=== PATIENT | female | born 1950 | race Caucasian/White ===

== ENCOUNTER 2018-04-15 15:09 | Outpatient (CLI) | payer OTHER ==
--- NOTE | 2018-04-15 16:40 | Ultrasound Report ---
Reason: THYROID NODULE Procedure Date: 04/15/2018 Accession Number: [id number] / [id number] Procedure: US - Head or Neck Soft Tissue CPT Code: FULL RESULT: EXAM: THYROID ULTRASOUND EXAM DATE: 04/15/2018 04:11 PM. CLINICAL HISTORY: THYROID NODULE. COMPARISON: None. TECHNIQUE: Real time sonographic imaging of the thyroid was performed by the bean roaster. Multiple branch service representative static images were saved for review. FINDINGS: THYROID GLAND: Right Lobe: 3.9 x 1.6 x 1.5 cm, volume 5 cc. Heterogeneous echotexture. Mild hyperemia. Right Lobe Nodules: 1. Superior pole 1.4 x 1.1 x 0.6 cm. Mixed solid cystic. Isoechoic solid component. Wider than tall. Smooth margins. No calcifications. 2. Upper pole near the isthmus 1.0 x 0.6 x 0.4 cm. Mixed solid cystic. Isoechoic solid component. Wider than tall. Smooth margins. No calcifications. 3. Inferior pole 3 mm nodule. Spongiform wider than tall. Smooth margins. No calcifications. Left Lobe: 2.9 x 1.4 x 0.8 cm, volume 2 cc. Heterogeneous echotexture. Left Lobe Nodules: None. Mild hyperemia. Isthmus: 0.2 cm AP. Isthmic Nodules: None. LYMPH NODES: No adenopathy demonstrated in the central or lateral compartment. IMPRESSION: Right thyroid nodules Ti-Rads 2 or less, also less than 1.5 cm. Not suspicious. The thyroid is heterogeneous and mildly hyperemic. Correlate for clinical thyroid status. Management recommendations are based on 2015 [employer] [employer] Management Guidelines for Adult Patients with Thyroid Nodules and Differentiated Thyroid Cancer. [facility]
== END 2018-04-15 15:10 | disposition home or self-care (01) ==
LOC: DI 15:09
PROVIDERS: ATTEND Physician Assistant
DX: E04.2 Nontoxic multinodular goiter (principal)
CPT/HCPCS: 76536

== ENCOUNTER 2018-06-24 19:25 | Outpatient (CLI) | payer OTHER ==
--- NOTE | 2018-06-25 00:46 | XRAY Report ---
Reason: PAIN IN LEFT HIP,SACROCOCCYGEAL DISORDERS, NOT ELS Procedure Date: 06/24/2018 Accession Number: [id number] / [id number] Procedure: XR - Sacrum/Coccyx CPT Code: FULL RESULT: EXAM: SACRUM AND COCCYX RADIOGRAPHY EXAM DATE: 06/24/2018 08:15 PM. HISTORY: PAIN IN LEFT HIP,SACROCOCCYGEAL DISORDERS, NOT ELS. COMPARISONS: None. TECHNIQUE: 2 views. FINDINGS: Alignment: Normal. The sacrum and coccyx are normally aligned. Bones: Normal. No fracture or bone lesion. Joints: Normal. The sacroiliac joints and visualized hips are within normal limits. Soft Tissues: Unremarkable. IMPRESSION: Normal sacrum and coccyx radiography. [facility]
--- NOTE | 2018-06-25 00:50 | XRAY Report ---
Reason: PAIN IN LEFT HIP,SACROCOCCYGEAL DISORDERS, NOT ELS Procedure Date: 06/24/2018 Accession Number: [id number] / [id number] Procedure: XR - Hip w/Pelvis 2-3V LT CPT Code: FULL RESULT: EXAM: LEFT HIP AND PELVIS RADIOGRAPHY EXAM DATE: 06/24/2018 08:15 PM. HISTORY: PAIN IN LEFT HIP,SACROCOCCYGEAL DISORDERS, NOT ELS. COMPARISONS: None. TECHNIQUE: 1 view of the pelvis and 1 view of the hip. FINDINGS: Bones: Normal. No fracture or bone lesion. Joints: Mild bilateral hip osteoarthritis. Soft Tissues: Normal. No soft tissue swelling. IMPRESSION: Mild osteoarthritis. No evidence of fracture. [facility]
== END 2018-06-24 19:26 | disposition home or self-care (01) ==
LOC: DI 19:25
PROVIDERS: ATTEND Nurse Practitioner Family
DX: M16.12 Unilateral primary osteoarthritis, left hip (principal); M53.3 Sacrococcygeal disorders, not elsewhere classified
CPT/HCPCS: 72220